=== PATIENT | female | born 1995 | race Caucasian/White ===

== ENCOUNTER 2018-05-28 03:51 | Inpatient (IN) ==
[2018-05-28] MEDS ORDERED: Famotidine 20 MG/2 ML VIAL IVP PRN (03:52)
[2018-05-28] MEDS ORDERED: Lidocaine 1% 20 ML MDV INFILT PRN (03:52)
[2018-05-28] MEDS ORDERED: Naloxone 0.4 MG/ML INJ IVP PRN (03:52)
[2018-05-28] MEDS ORDERED: *HR* Nalbuphine 10 MG/ML AMPUL IVP PRN (03:52)
[2018-05-28] MEDS ORDERED: miSOPROStol 25 MCG TABLET VG PRN (03:52)
[2018-05-28] MEDS ORDERED: Ondansetron 4 MG/2 ML VIAL IVP PRN (03:52)
[2018-05-28] MEDS ORDERED: Metoclopramide 10 MG/2 ML VIAL IVP PRN (03:52)
[2018-05-28] MEDS ORDERED: Ringers Solution, Lactated 1,000 ML IVC SCH (04:00)
[2018-05-28] MEDS ORDERED: Penicillin G Potassium 5,000,000 UNIT in 0.9 % Sodium Chloride Mini Bag 100 ML IVPB ONE (05:00)
[2018-05-28 05:16] LABS: Basophils # 0.1 K/mcL (0.0-0.2); Basophils % 0.8 %; Eosinophils # 0.2 K/mcL (0.0-0.6); Eosinophils % 2.1 %; Hematocrit 37.1 % (35.3-44.9); Hemoglobin 12.9 g/dL (11.5-15.4); Immature Granulocytes % 0.9 % (0-4); Lymphocytes # 2.8 K/mcL (0.6-4.6); Lymphocytes % 24.4 %; Mean Corpuscular HGB Conc 34.8 g/dL (31.6-35.5); Mean Corpuscular Volume 92.1 fL (83.0-100.0); Monocytes # 0.6 K/mcL (0.0-1.3); Monocytes % 5.2 %; Neutrophils # 7.8 K/mcL (1.6-8.9); Platelet Count 264 K/mcL (140-400); Red Blood Count 4.03 M/mcL (3.82-4.97); Red Cell Distribution Width 11.9 % (11.5-14.5); Segmented Neutrophils % 66.6 %
[2018-05-28 05:40] LABS: Amphetamine Screen,Urine Negative ng/mL (Cutoff=1000); Barbiturate Screen,Urine Negative ng/mL (Cutoff=200); Benzodiazepines Screen,Urine Negative ng/mL (Cutoff=200); Cannabinoid Screen,Urine Negative ng/mL (Cutoff = 50); Cocaine Screen,Urine Negative ng/mL (Cutoff= 300); Opiate Screen,Urine Negative ng/mL (Cutoff=300); Phencyclidine Screen,Urine Negative ng/mL (Cutoff=25)
--- NOTE | 2018-05-28 07:31 | OB/GYN History & Physical ---
Date of Encounter: 05/28/18 Time of Encounter: 07:29 Assessment and Plan (1) Elective induction of labor planned Current visit: Yes Status: Acute We will begin with Roca induction and Pitocin versus Cytotec. Currently tracing category 1 with irregular contractions. (2) Postmaturity , 40-42 weeks gestation Current visit: Yes Status: Acute History of Present Illness Chief complaint: induction HPI: Ms. Clemons is a 22 year old female who presents today for induction of labor at 40 weeks and 4 days. Patient is doing well. She is having no complaints of any kind today. On presentation she is oskar irregularly. Cervix is 1 thick and high. Today we discussed reduction. She understands this completely. She does wish to proceed today. We discussed proceeding with a Roca induction. She would like to do this. She has allergies to sulfa causing hives. Current medications include vitamins. She has no chronic medical conditions. Surgical history includes tonsillectomy and adenoidectomy, wisdom teeth extraction. She has no history of abnormal Pap smears, STDs or pelvic infections. Socially she denies tobacco, alcohol, illicit drug use. Family history significant for hypertension. Past Med Surg Social Fam HX - Past Medical History Medical history: no medical history Psychiatric history: no psych history - Past Surgical History Additional surgical history: t&a, wisdom teeth - Social History Smoking Status: Never smoker Smokeless Tobacco Status: No Alcohol use: none Drug use: none - Family History Grandmother Living Status: Still Living Hx Family Cardiac Disorders: Yes (HTN, A Fib) Hx Family Cancer: Yes (breast) Obstetrical History - Pregnancies : 2 Ab's: 1 Livin Medications and Allergies Allergy/AdvReac Type Severity Reaction Status Date / Time Sulfa (Sulfonamide Allergy Hives Verified 05/28/18 04:26 Antibiotics) Review of System OB All systems PM: reviewed and no additional remarkable complaints except as stated Exam - Vital Signs Vital signs: Initial Vital Signs Pulse Resp BP 71 16 133/80 05/28/18 04:29 05/28/18 04:29 05/28/18 04:29 - Constitutional Constitutional: well developed, well nourished, no acute distress, average body habitus - HEENT HEENT: EOMI, PERRL - Neck Neck exam: full ROM - Lungs Respiratory exam: CTAB - Cardiovascular Cardiovascular exam: RRR - Abdomen Abdomen: Present: bowel sounds normal, gravid, non tender - Extremities Extremities exam: full ROM Deep Tendon Reflex Grade: 2+ Normal - Vagina Vagina: Present: normal moisture - Cervix Dilation: 1 Effacement: 0 Station: -2 - Uterus Uterus exam: Present: normal size Results Result Diagrams: 05/28/18 04:10 Abnormal lab results WBC 11.6 K/mcL (4.3-11.1) H 05/28/18 04:10 All other labs normal. - VTE Reasons for not Prescribing Prophylaxis: Treatment not Indicated - Low risk for VTE
[2018-05-28] MEDS: Penicillin G Potassium 2,500,000 UNIT in 0.9 % Sodium Chloride 100 ML IVPB SCH ×3 (09:08→18:03)
--- NOTE | 2018-05-28 09:54 | Anesthesia Evaluation PreOp ---
Date of Encounter: 05/28/18 Time of Encounter: 09:52 - Past History Planned Operation: adolfo Cardiac History: Denies any Significant Hx Pulmonary History: Denies Any Significant HX UNION ORGANIZER History: Denies Any Significant HX Other Medical History: Denies Any Significant HX Anesthesia History: No Prior Anesthetic Complications, Past Anesthesia (tonsils) : Yes (40 plus 4, ) Alcohol Use: none Drug use: none Medications and Allergies Allergy/AdvReac Type Severity Reaction Status Date / Time Sulfa (Sulfonamide Allergy Hives Verified 05/28/18 04:26 Antibiotics) - Meds/Allergy Pre-op Review Medications Reviewed: Yes Allergies Reviewed: Yes Beta Blockers on Current Med List: No Anesthesia Results - Labs 05/28/18 04:10 Anesthesia Exam Height: 68 Weight: 77 - HEENT Pupil (Motor): Pupils equal Mallampati: I Teeth: Normal Oral Opening: Greater than 3 - UNION ORGANIZER LOC: Oriented UNION ORGANIZER Motor: Normal RUE, Normal LUE, Normal RLE, Normal LLE, Normal Face UNION ORGANIZER Sensory: Normal: RUE, LUE, RLE, LLE, Face - Cardiac Rhythm: Regular Murmur: None JVD: No Carotid Bruit: No - Pulmonary Breath Sounds: bilateral Clear Respiratory Effort: Symmetrical Anesthesia Assess/Plan ASA Score: 2 Level of consciousness: Cooperative Anesthetic Plan: Epidural
[2018-05-28] MEDS ORDERED: Oxytocin 20 units/ LR 1000 mL 20 UNIT/1,000 ML BAG IVC SCH (12:15)
[2018-05-28] MEDS ORDERED: Epidural Premix (fent/bupiv) 110 ML EP ONE (16:14)
[2018-05-28] MEDS ORDERED: *HR* Ropivacaine/PF 0.2% 20 ML VIAL ONE ×2 (16:15→21:23)
[2018-05-28] MEDS ORDERED: *HR* FentaNYL (PF) 100 MCG/2 ML VIAL ONE (16:15)
[2018-05-28] MEDS ORDERED: Lidocaine -MPF 1% 5 ML AMPUL ONE (16:15)
[2018-05-28] MEDS ORDERED: Epidural Premix (fent/bupiv) 110 ML EP SCH (16:45)
--- NOTE | 2018-05-28 16:46 | Anesthesia Procedures ---
Date of Encounter: 05/28/18 Time of Encounter: 16:15 ([id number]) Procedures: Anesthesia - Epidural/Spinal Patient ID/Chart reviewed: Yes Patient examined: Yes OB Eval: Contractions: Non-stressed pattern Consent Obtained: Yes Supplemental Oxygen: None/Room Air Site Prep: Aseptic Technique Patient position: upright Local Anesthetic: Lidocaine 1% Amount of Local Anesthetic used: 3 Touhy Needle Gauge: 18 Touhy Needle Depth (cm): 4 Catheter Depth at Skin (cm): 12 Loading Dose: Fentanyl (mcg): 100 Loading Dose: Other: ropivicaine 5cc 0.2%, Loading Dose Administered: Thru Touhy Needle Infusion Rate (mls/hr): [address]: Tegaderm Interspace Used: L3-L4 Loss of Resistance (CHRISTIE): Yes Blood: No CSF: No Paresthesia: No
--- NOTE | 2018-05-28 17:50 | Event Note ---
Date of Encounter: 05/28/18 Time of Encounter: 17:48 Irene is a 22-year-old female 1 who presented today for induction of labor. Patient doing well today. Patient oskar every 2-4 minutes. Pitocin was increased. Sterile vaginal exam she 6 cm, 90% effaced and 0 station. heart rate in the 150s with accelerations, category 1. Clear fluid being noted. We will continue induction of labor.
--- NOTE | 2018-05-28 18:01 | OB Labor Progress Note ---
Date of Encounter: 05/28/18 Time of Encounter: 16:10 Labor Progress Note - Subjective Subjective: Patient working well with contractions. Denies extremely painful contractions at this time but does plan for an epidural. - Vital Signs Vital Signs: WNL - Cervix Cervix: 6/80/-1 - Heart Tones Heart Tones: 145 bpm, moderate variability, +15x15 accels, no decels. - Graham Graham: q 2-4 minutes - Interventions Interventions: SVE after marshall expelled AROM for moderate amount of clear fluid with bloody show. IUPC inserted for accurate contraction monitoring. - Plan Physician notified: Yes Physician notified details: Dr. Herrera at bedside during SVE Plan: Continue Pitocin induction, Epidural when patient desires. Anticipate
--- NOTE | 2018-05-28 21:39 | Anesthesia Progress Note ---
Date of Encounter: 05/28/18 Time of Encounter: 21:37 Anesthesia Note - Note Note: 05/28/18 21:37 Called to bedside for pelvic floor discomfort. 0.2% ropivicaine 10ml given via epidural, gtt rate turned up to 16cc/hr.
--- NOTE | 2018-05-28 22:00 | Event Note ---
Date of Encounter: 05/28/18 Time of Encounter: 21:59 Sterile vaginal exam 9 cm 100% effaced and 0 station. heart rate in the 160s with accelerations. Category 1 tracing. We will continue induction. Contractions every 2 minutes.
[2018-05-29] MEDS: Penicillin G Potassium 2,500,000 UNIT in 0.9 % Sodium Chloride 100 ML IVPB SCH (01:49)
[2018-05-29] MEDS ORDERED: *HR* Phenylephrine 10 MG/ML VIAL ONE (03:56)
[2018-05-29] MEDS ORDERED: Chloroprocaine/PF 20 ML VIAL INFILT ONE (03:56)
[2018-05-29] MEDS ORDERED: *HR* Oxytocin 10 UNIT/ML VIAL IM ONE ×2 (03:56→04:17)
[2018-05-29] MEDS ORDERED: *HR* Morphine Sulfate/PF 10 MG/10 ML AMPUL ONE (04:02)
[2018-05-29] MEDS ORDERED: Ringers Solution, Lactated 1,000 ML ONE (04:17)
--- NOTE | 2018-05-29 04:24 | Event Note ---
Date of Encounter: 05/29/18 Time of Encounter: 03:40 Patient is now been complete and pushing for 4 hours. Patient has rested some periods in between due to tachycardia. Patient able to bring the infant down to a 0/+1 station with no further movement. Multiple techniques used to try help bring baby down. Mother unable to do any further descent of . Infant was again tachycardia in the 170-180 range. Patient exhausted. She does not feel that she can continue this. Patient has given amazing F her. But because I feel no descent we now have tachycardia and we have maternal exhaustion I feel the only option is a section. Patient and agreed and wished to proceed with primary section.
--- NOTE | 2018-05-29 04:27 | OB/GYN Procedure Note ---
Section - Date of procedure: 05/29/18 Preop diagnosis: arrest of descent, category 2 FHT tracing, other (Maternal exhaustion and tachycardia) Post-op diagnosis: other (CPD) Procedure: primary low transverse Surgeon: Adryan Newman Blood Loss: 300 Was there an assistant technician present: Yes Electric Truck Operator: Marie Cantrell Safety Administrator: Gerard Hayes Anesthesia Type: Epidural section complications: none Disposition: PACU Specimens: Placenta - Infant (s) A Presentation: vertex Position: OA Route of delivery: other (primary ) Gender: Female Viability: Viable Pounds: 7 Ounces: 14 Gram Weight: 3.565 kg at 1 minute: 7 at 5 minutes: 9 Shoulder Dystocia: not encountered Specimens collected: cord blood, venous cord gases, arterial cord gases Placenta: partial extraction Cord: 3 umbilical vessels, other (Nuchal cord 2, cord around the arm and cord around leg), nuchal cut - Narrative Narrative: Patient had been pushing approximately 3-4 hours. We now had tachycardia and maternal exhaustion. Infant had had no descent. Because of this would like to proceed with section. At this time we had a flat tracing with tachycardia we were told that we had a repeat section coming in from an outlying hospital who was in labor. We do not expect the patient for 15-20 minutes. Because of this an emergent section was called to have this baby out with a questionable tracing, before the next patient arrived and needed a repeat section. The staff was immediately prepared, and section proceeded within 10 minutes. Patient was taken to the operating room her epidural was bolused. She was prepped and draped in usual sterile fashion. Once adequate analgesia was achieved, a Pfannenstiel incision was made and carried sharply through the subcutaneous taste and fatty tissue until the fascial layers reached. The fascia was then nicked in the midline incised bilaterally with [place] scissors was then dissected vertically for adequate exposure. Rectus abdominis muscle sutures and separate the midline and the peritoneum sharply entered. A bladder blade was placed at the inferior margin incision. The bladder flap was then developed. A bladder blade was placed over the bladder flap. A low transverse incision was then made in the lower uterine segment. At this time a hand from one nursing staff is pushing the infant out from the vagina. 's head was tightly wedged into the pelvis. It did take some time to be able to lift the infant's head out of the pelvis as it was so wedged in. Once 's head was brought up was easily delivered. There was a cord around the neck 2 which was reduced. The rest of the infant was then delivered. There was a cord around the left arm and the leg. was floppy upon delivery. Cord was clamped cut and immediately passed to NICU team in attendance. Cord blood was obtained as well as cord gases. Placenta was delivered via uterine massage and lavage was then performed. The uterus firmed up nicely. The uterine incision was then closed with 0 Vicryl suture in a running locking fashion. 2 [id number]'s were placed for final hemostasis. The uterus was replaced the pelvic cavity. Pelvic cavity was rinsed thoroughly with sterile water 2. There was excellent hemostasis. The fascia was then closed the Vicryl suture running nonlocking fashion. The suprafascial region was rinsed with sterile water 2. All bleeders cauterized. The skin was then closed with danay. Patient tolerated procedure well. Estimated blood loss 300 mL.
[2018-05-29] MEDS ORDERED: Rho Immune Globulin 1,500 UNIT SYRINGE IM ONE ×2 (04:36→08:21)
[2018-05-29] MEDS ORDERED: *HR* OxyCODONE/APAP 5/325 TABLET PO PRN (04:36)
[2018-05-29] MEDS ORDERED: Ibuprofen 600 MG TABLET PO PRN (04:36)
[2018-05-29] MEDS ORDERED: Ondansetron 4 MG/2 ML VIAL IVP PRN ×2 (04:36→08:21)
[2018-05-29] MEDS ORDERED: Simethicone 80 MG TAB.CHEW PO PRN ×2 (04:36→08:21)
[2018-05-29] MEDS ORDERED: Sennosides 8.6 MG TABLET PO PRN ×2 (04:36→08:21)
[2018-05-29] MEDS ORDERED: Metoclopramide 10 MG/2 ML VIAL IVP PRN ×2 (04:36→08:21)
[2018-05-29] MEDS ORDERED: Oxytocin 20 units/ LR 1000 mL 20 UNIT/1,000 ML BAG IVC SCH ×2 (04:45→08:30)
[2018-05-29] MEDS ORDERED: *HR* Promethazine 25 MG/ML VIAL IVP PRN (06:19)
[2018-05-29] MEDS ORDERED: *HR* Meperidine 25 MG/ML SYRINGE IVP PRN (06:19)
[2018-05-29] MEDS ORDERED: Ondansetron 4 MG/2 ML VIAL IVP ONE (06:19)
[2018-05-29] MEDS ORDERED: *HR* HYDROmorphone (PF) 1 MG/ML SYRINGE IVP PRN ×2 (06:19)
[2018-05-29] MEDS ORDERED: *HR* OxyCODONE Immed Rel 5 MG TABLET PO PRN (06:19)
[2018-05-29] MEDS ORDERED: Ringers Solution, Lactated 1,000 ML IVC SCH ×2 (06:30→08:30)
[2018-05-29] MEDS ORDERED: ceFAZolin 2,000 MG in Water for inj. (sterile) 20 ML 10 ML IVP SCH (08:00)
[2018-05-29] MEDS ORDERED: Naloxone 0.4 MG/ML INJ IVP PRN (08:21)
[2018-05-29] MEDS ORDERED: Prenatal Vit/FA 1 EACH TABLET PO SCH (09:00)
--- NOTE | 2018-05-29 10:32 | Anesthesia Evaluation Post Op ---
Date of Encounter: 05/29/18 Time of Encounter: 10:31 - Vital Signs Vital Signs: Vital Signs/O2 Sat, Most Current Temp Pulse Resp BP Pulse Ox 98.8 F 72 14 118/64 98 05/29/18 09:43 05/29/18 09:43 05/29/18 09:43 05/29/18 09:43 05/29/18 09:43 - Lungs Lungs: Clear Ascult./Percussion - Airway Airway: Non-obstructed - Cardiovascular Regular Rate - Mental Status Mental Status: Alert & Oriented, Answers Appropriately - Pain Pain Scale: 1 Pain Scale used: Numeric (1 - 10) - Nausea Vomiting Nausea Vomiting: Not Present - Hydration Hydration: Tolerates oral liquids, Roca catheter - Discharge PostOp Status: Transfer Patient to floor
[2018-05-29] MEDS: Prenatal Vit/FA 1 EACH TABLET PO SCH (11:41)
[2018-05-29] MEDS: Ibuprofen 600 MG TABLET PO PRN (19:45)
[2018-05-29] MEDS: *HR* OxyCODONE/APAP 5/325 TABLET PO PRN ×2 (19:45→23:50)
[2018-05-30] MEDS: *HR* OxyCODONE/APAP 5/325 TABLET PO PRN ×3 (04:22→20:54)
[2018-05-30 05:19] LABS: Basophils # 0.1 K/mcL (0.0-0.2); Basophils % 0.4 %; Eosinophils # 0.2 K/mcL (0.0-0.6); Eosinophils % 1.6 %; Hematocrit 31.4 % (35.3-44.9); Immature Granulocytes % 0.6 % (0-4); Lymphocytes # 2.3 K/mcL (0.6-4.6); Lymphocytes % 16.6 %; Mean Corpuscular HGB Conc 33.4 g/dL (31.6-35.5); Mean Corpuscular Hemoglobin 31.3 pg (28.0-33.3); Mean Corpuscular Volume 93.7 fL (83.0-100.0); Mean Platelet Volume 9.9 fL (9.4-12.4); Monocytes # 0.8 K/mcL (0.0-1.3); Monocytes % 5.5 %; Neutrophils # 10.6 K/mcL (1.6-8.9); Platelet Count 193 K/mcL (140-400); Red Blood Count 3.35 M/mcL (3.82-4.97); Red Cell Distribution Width 12.2 % (11.5-14.5); Segmented Neutrophils % 75.3 %
[2018-05-30 05:20] LABS: Hemoglobin 10.5 g/dL (11.5-15.4)
[2018-05-30] MEDS: Ibuprofen 600 MG TABLET PO PRN ×2 (08:05→17:45)
[2018-05-30] MEDS: Prenatal Vit/FA 1 EACH TABLET PO SCH (08:05)
--- NOTE | 2018-05-30 08:22 | OB/GYN Progress Note ---
Date of Encounter: 05/30/18 Time of Encounter: 08:20 - Assessment and Plan (1) Status post primary low transverse section Current Visit: Yes Status: Acute Meeting all day 1 milestones Continue routine care Anticipate discharge home tomorrow (2) Breast feeding status of mother Current Visit: Yes Status: Acute consult when necessary Subjective - Subjective Principal diagnosis: s/p PLTCS Interval history: Feeling well. Out of bed without dizziness. Some abdominal discomfort-using binder. Cramping minimal, using ibuprofen and Percocet. every 2- 3 hours. Some nipple soreness. Voiding without difficulty. Passing flatus, no BM yet. Tolerating clear liquid diet. Patient reports: appetite normal, voiding normally, pain well controlled, ambulating normally [place]: doing well, nursing well Objective - Vital Signs Latest vital signs: Vital Signs Temp Pulse Resp BP Pulse Ox 05/30/18 07:53 97.5 F L 69 16 118/75 98 05/30/18 04:15 97.8 F 64 16 121/74 97 05/29/18 23:52 97.5 F L 70 18 109/66 96 05/29/18 20:48 98.3 F 82 18 122/76 96 05/29/18 16:45 98.1 F 100 16 123/82 98 05/29/18 11:33 14 05/29/18 09:43 98.8 F 72 14 118/64 98 05/29/18 09:30 98.8 F 72 14 118/64 98 05/29/18 08:30 98.8 F 77 14 123/65 98 Intake and Output 05/29/18 05/30/18 05/30/18 23:59 07:59 15:59 Intake Total 800 / 800 Output Total 3300 / 3300 700 / 700 Balance -3300 / -3300 100 / 100 Intake: Oral 800 / 800 Output: Urine 1400 / 1400 700 / 700 Catheter 1900 / 1900 Other: Weight 70.216 kg Patient Weight 05/30/18 23:59 Weight 70.216 kg - Exam Lungs: bilateral: normal Chest: Normal S1, Normal S2 Extremities: Present: normal Abdomen: Present: normal appearance, soft Incision: Present: normal, dry, dressed Uterus: Present: firm Fundal Height: 2 (below and midline) - Labs Labs: Laboratory Results - last 24 hr 05/30/18 05:06 WBC 14.1 H RBC 3.35 L Hgb 10.5 L D Hct 31.4 L MCV 93.7 MCH 31.3 MCHC 33.4 RDW 12.2 Plt Count 193 MPV 9.9 Immature Gran % 0.6 Seg Neutrophils % 75.3 Lymphocytes % 16.6 Monocytes % 5.5 Eosinophils % 1.6 Basophils % 0.4 Neutrophils # 10.6 H Lymphocytes # 2.3 Monocytes # 0.8 Eosinophils # 0.2 Basophils # 0.1
[2018-05-30] MEDS ORDERED: Measles/Mumps/Rubella Vacc 0.5 ML VIAL SQ ONE (17:27)
[2018-05-30] MEDS ORDERED: Lanolin 7 G OINT...G. TP PRN (17:32)
[2018-05-31] MEDS: *HR* OxyCODONE/APAP 5/325 TABLET PO PRN ×3 (04:09→14:31)
[2018-05-31] MEDS: Prenatal Vit/FA 1 EACH TABLET PO SCH (08:51)
[2018-05-31] MEDS: Ibuprofen 600 MG TABLET PO PRN ×2 (14:31→21:37)
--- NOTE | 2018-05-31 17:55 | OB/GYN Progress Note ---
Date of Encounter: 05/31/18 Time of Encounter: 17:53 - Assessment and Plan (1) Status post primary low transverse section Current Visit: Yes Status: Acute Stable postop day #2 Continue current management Anticipate discharge tomorrow Subjective - Subjective Interval history: Patient states pain will managed, tolerating by mouth, passing flatus. patient is having tearfulness and concern with condition after spitting up old blood, but appropriate for situation Patient reports: appetite normal, voiding normally, pain well controlled, ambulating normally : doing well Objective - Vital Signs Latest vital signs: Vital Signs Temp Pulse Resp BP Pulse Ox 05/31/18 08:50 16 05/31/18 08:25 98.0 F 78 16 123/78 97 05/30/18 20:49 98.3 F 76 14 119/76 97 Intake and Output 05/31/18 05/31/18 05/31/18 07:59 15:59 23:59 Intake Total 600 / 600 700 / 700 Output Total 845 / 845 650 / 650 Balance 600 / 600 -145 / -145 -650 / -650 Intake: Oral 600 / 600 700 / 700 Output: Urine 845 / 845 650 / 650 Other: Weight 72.03 kg Patient Weight 05/31/18 23:59 Weight 72.03 kg - Exam Lungs: left: normal Extremities: Present: normal Abdomen: Present: soft Uterus: Present: firm (U)
[2018-05-31 22:03] VITALS: BP 126/78
[2018-06-01] MEDS: *HR* OxyCODONE/APAP 5/325 TABLET PO PRN (00:03)
[2018-06-01] MEDS: Prenatal Vit/FA 1 EACH TABLET PO SCH (09:53)
[2018-06-01] MEDS: Ibuprofen 600 MG TABLET PO PRN (09:53)
--- NOTE | 2018-06-01 10:42 | Discharge Summary ---
Date of Encounter: 06/01/18 Time of Encounter: 10:35 - Discharge Diagnosis (1) Breast feeding status of mother Priority: Secondary Status: Acute Comments: well established. Pt has pump at home. (2) Status post primary low transverse section Priority: Primary Status: Acute Comments: Pt meeting all post-op milestones and desires discharge home today. - Discharge Medications Prescriptions: Ibuprofen [Motrin] 600 mg PO Q6HR PRN #60 tablet PRN Reason: Cramping OxyCODONE/APAP 5/325 [Percocet 5/325 MG] 1 each PO Q6HR PRN 7 Days #28 tablet PRN Reason: Moderate pain 4-6 Azithromycin [Zithromax] 500 mg PO DAILY #5 tablet Cephalexin [Keflex] 500 mg PO BID #10 capsule Docusate [Colace] 100 mg PO BID #60 capsule Home Medications: Azithromycin [Zithromax] 500 mg PO DAILY #5 tablet 06/01/18 [Rx] Cephalexin [Keflex] 500 mg PO BID #10 capsule 06/01/18 [Rx] Docusate [Colace] 100 mg PO BID #60 capsule 06/01/18 [Rx] Ibuprofen [Motrin] 600 mg PO Q6HR PRN #60 tablet 06/01/18 [Rx] Lanolin [Lansinoh] 1 appl TP QID PRN oint...g. 06/01/18 [Rx] Mupirocin [Bactroban Oint] 1 appl TP BID tube 06/01/18 [Rx] OxyCODONE/APAP 5/325 [Percocet 5/325 MG] 1 each PO Q6HR PRN 7 Days #28 tablet 06/01/18 [Rx] Simethicone [Gas-X] 80 mg PO TID PRN tab.chew 06/01/18 [Rx] Allergies/Adverse Reactions: Allergy/AdvReac Type Severity Reaction Status Date / Time Sulfa (Sulfonamide Allergy Hives Verified 05/28/18 04:26 Antibiotics) Data Procedures and tests throughout hospitalization: Laboratory Tests 05/28/18 05/28/18 05/29/18 04:10 05:00 05:30 WBC 11.6 H RBC 4.03 Hgb 12.9 Hct 37.1 MCV 92.1 MCH 32.0 MCHC 34.8 RDW 11.9 Plt Count 264 MPV 11.0 Immature Gran % 0.9 Seg Neutrophils % 66.6 Lymphocytes % 24.4 Monocytes % 5.2 Eosinophils % 2.1 Basophils % 0.8 Neutrophils # 7.8 Lymphocytes # 2.8 Monocytes # 0.6 Eosinophils # 0.2 Basophils # 0.1 Urine Opiates Screen Negative Ur Barbiturates Screen Negative Ur Phencyclidine Scrn Negative Ur Amphetamines Screen Negative U Benzodiazepines Scrn Negative Urine Cocaine Screen Negative U Marijuana (THC) Screen Negative Ur Drug Screen Interp See Below Screen NEGATIVE Baby's Blood Type A RH POSITIVE Mother's Blood Type A RH NEGATIVE Rhogam Indicated YES Rhogam Req for Mother 1 05/30/18 05:06 WBC 14.1 H RBC 3.35 L Hgb 10.5 L D Hct 31.4 L MCV 93.7 MCH 31.3 MCHC 33.4 RDW 12.2 Plt Count 193 MPV 9.9 Immature Gran % 0.6 Seg Neutrophils % 75.3 Lymphocytes % 16.6 Monocytes % 5.5 Eosinophils % 1.6 Basophils % 0.4 Neutrophils # 10.6 H Lymphocytes # 2.3 Monocytes # 0.8 Eosinophils # 0.2 Basophils # 0.1 Urine Opiates Screen Ur Barbiturates Screen Ur Phencyclidine Scrn Ur Amphetamines Screen U Benzodiazepines Scrn Urine Cocaine Screen U Marijuana (THC) Screen Ur Drug Screen Interp Screen Baby's Blood Type Mother's Blood Type Rhogam Indicated Rhogam Req for Mother Date of admission: 05/28/18 03:51 Primary care physician: Sabrina Beck Discharging clinician: Rosa Tiwari Anticipated date of discharge: 06/01/18 - Patient Status Disposition: Home, Self-Care Condition: Good Functional capacity at discharge: independent ambulation Overall status at discharge: patient is progressing back to baseline - Discharge Instructions Follow Up With: Petra Sorto DO [Primary Care Provider] - Adryan Herrera MD [Partnered Physician] - - Diet and Activity Activity: increase activity as tolerated Diet: regular diet Hospital Course Reason for admission: induction of labor Delivery: section Episiotomy: none Laceration: none Other procedures: none complications: none Discharge diagnosis: IUP at term delivered [place] baby: female Hospital course: - Date of procedure: 05/29/18 Preop diagnosis: arrest of descent, category 2 FHT tracing, other (Maternal exhaustion and tachycardia) Post-op diagnosis: other (CPD) Procedure: primary low transverse Surgeon: Adryan Herrera Quantitated Blood Loss: 300 Was there an assistant operator present: Yes Skip Locator: Marie Cantrell Round Up Ring Hand: Gerard Hayes Anesthesia Type: Epidural section complications: none Disposition: PACU Specimens: Placenta - Infant (s) Infant A Presentation: vertex Position: OA Route of delivery: other (primary ) Gender: Female Viability: Viable Pounds: 7 Ounces: 14 Gram Weight: 3.565 kg at 1 minute: 7 at 5 minutes: 9 Shoulder Dystocia: not encountered Specimens collected: cord blood, venous cord gases, arterial cord gases Placenta: partial extraction Cord: 3 umbilical vessels, other (Nuchal cord 2, cord around the arm and cord around leg), nuchal cut Time Attestation: Total time spent providing and/or coordinating discharge services: - VTE Reasons for not Prescribing Prophylaxis: Treatment not Indicated - Low risk for VTE Documentation of Mechanical Device: Intermittent pneumatic compression device Exam - Constitutional Vitals: Temp Pulse Resp BP Pulse Ox 98.0 F 70 18 126/78 98 05/31/18 21:15 05/31/18 21:15 05/31/18 21:30 05/31/18 21:15 05/31/18 21:15 General appearance IM: A&O X 3 - Respiratory Respiratory exam: Present: CTAB - Cardiovascular Cardiovascular exam IM: Present: RRR - GI/Abdominal GI/Abdominal exam IM: soft Incision: normal, dry, intact Additional comments: intact with danay, no s/sx infection - Uterine Tone: Firm Uterus Position: 1 Finger Below Umbilicus - Extremities Exam Extremities exam IM: Present: normal inspection - Neurological Exam Neurological exam: normal gait, oriented X3 - Psychiatric Additional comments: reports good mood, pt to discuss contraception with Dr. Herrera at visit
== END 2018-06-01 11:33 | disposition home or self-care (01) | DRG 788 ==
LOC: 1NENULAB 03:51 → 1NENUOBS 05-29 06:39
PROVIDERS: ADMIT Obstetrics & Gynecology; ATTEND Obstetrics & Gynecology

== ENCOUNTER 2021-02-13 04:59 | Inpatient (IN) ==
[2021-02-13] MEDS ORDERED: Azithromycin 500 MG in 0.9 % Sodium Chloride 250 ML IVPB PRN (05:09)
[2021-02-13] MEDS ORDERED: Ringers Solution, Lactated 1,000 ML IVC ONE (05:09)
[2021-02-13] MEDS ORDERED: Naloxone 0.4 MG/ML INJ IVP PRN (05:09)
[2021-02-13] MEDS ORDERED: Metoclopramide 10 MG/2 ML VIAL IVP PRN (05:09)
[2021-02-13] MEDS ORDERED: Famotidine 20 MG/2 ML VIAL IVP PRN (05:09)
[2021-02-13] MEDS ORDERED: Ringers Solution, Lactated 1,000 ML IVC SCH (05:15)
[2021-02-13 05:58] LABS: Basophils # 0.1 K/mcL (0.0-0.2); Basophils % 0.9 %; Eosinophils # 0.2 K/mcL (0.0-0.6); Eosinophils % 1.8 %; Hematocrit 35.8 % (35.3-44.9); Hemoglobin 11.5 g/dL (11.5-15.4); Immature Granulocytes % 1.3 % (0-4); Lymphocytes # 3.1 K/mcL (0.6-4.6); Lymphocytes % 27.2 %; Mean Corpuscular HGB Conc 32.1 g/dL (31.6-35.5); Mean Corpuscular Hemoglobin 29.1 pg (28.0-33.3); Mean Corpuscular Volume 90.6 fL (83.0-100.0); Mean Platelet Volume 10.5 fL (9.4-12.4); Monocytes % 8.5 %; Platelet Count 428 K/mcL (140-400); Red Blood Count 3.95 M/mcL (3.82-4.97); Red Cell Distribution Width 12.7 % (11.5-14.5); Segmented Neutrophils % 60.3 %; White Blood Count 11.5 K/mcL (4.3-11.1)
[2021-02-13 06:29] LABS: Influenza A PCR Negative (Negative); Influenza B PCR Negative (Negative); Resp. Syncytial Virus PCR Negative (Negative)
[2021-02-13 06:30] LABS: SARS-CoV-2 by PCR (In House) Negative (Negative)
[2021-02-13] MEDS ORDERED: EPHEDrine 50 MG/ML VIAL ONE (07:12)
[2021-02-13] MEDS ORDERED: *HR* Morphine Sulfate/PF 10 MG/10 ML AMPUL ONE (07:12)
[2021-02-13] MEDS ORDERED: *HR* FentaNYL (PF) 100 MCG/2 ML VIAL ONE (07:13)
[2021-02-13] MEDS ORDERED: *HR* Oxytocin 10 UNIT/ML VIAL IM ONE (07:13)
[2021-02-13] MEDS ORDERED: Ondansetron 4 MG/2 ML VIAL ONE (07:13)
[2021-02-13] MEDS ORDERED: Ketorolac 30 MG/ML VIAL ONE (07:13)
[2021-02-13] MEDS ORDERED: *HR* Phenylephrine 10 MG/ML VIAL ONE (07:13)
[2021-02-13] MEDS ORDERED: Ringers Solution, Lactated 1,000 ML ONE (07:22)
[2021-02-13] MEDS ORDERED: Oxytocin 20 units/ LR 1000 mL 20 UNIT/1,000 ML BAG IVC ONE (08:12)
[2021-02-13 10:05] LABS: Amphetamine Screen,Urine Negative ng/mL (Cutoff=1000); Barbiturate Screen,Urine Negative ng/mL (Cutoff=200); Benzodiazepines Screen,Urine Negative ng/mL (Cutoff=200); Cannabinoid Screen,Urine Negative ng/mL (Cutoff = 50); Cocaine Screen,Urine Negative ng/mL (Cutoff= 300); Opiate Screen,Urine Negative ng/mL (Cutoff=300); Phencyclidine Screen,Urine Negative ng/mL (Cutoff=25)
[2021-02-13] MEDS ORDERED: Lanolin 7 G OINT...G. TP PRN (12:04)
[2021-02-13] MEDS ORDERED: Ondansetron ODT 4 MG TAB.RAPDIS SL PRN (12:04)
[2021-02-13] MEDS ORDERED: Oxytocin 20 units/ LR 1000 mL 20 UNIT/1,000 ML BAG IVC SCH (12:04)
[2021-02-13] MEDS ORDERED: Benzocaine/Menthol 56 GM AEROSOL SPRAY TP PRN (12:04)
[2021-02-13] MEDS ORDERED: Rho Immune Globulin 1,500 UNIT SYRINGE IM PRN (12:04)
[2021-02-13] MEDS ORDERED: Measles/Mumps/Rubella Vacc 0.5 ML VIAL SQ PRN (12:04)
[2021-02-13] MEDS ORDERED: *HR* OxyCODONE Immed Rel 5 MG TABLET PO PRN (12:04)
[2021-02-13] MEDS ORDERED: *HR* Nalbuphine 10 MG/ML AMPUL IV PRN (14:29)
[2021-02-13] MEDS: Ibuprofen 600 MG TABLET PO SCH ×2 (16:45→23:03)
[2021-02-13] MEDS: CeFAZolin 2,000 MG/120 ML BAG IVPB SCH (16:46)
[2021-02-13] MEDS: Acetaminophen 325 MG TABLET PO SCH ×2 (17:43→18:34)
[2021-02-14] MEDS: Acetaminophen 325 MG TABLET PO SCH ×4 (00:50→21:08)
[2021-02-14] MEDS: CeFAZolin 2,000 MG/120 ML BAG IVPB SCH ×2 (00:53→08:07)
[2021-02-14 05:10] LABS: Basophils # 0.1 K/mcL (0.0-0.2); Basophils % 0.5 %; Eosinophils # 0.2 K/mcL (0.0-0.6); Eosinophils % 1.1 %; Hematocrit 32.4 % (35.3-44.9); Hemoglobin 10.8 g/dL (11.5-15.4); Immature Granulocytes % 0.7 % (0-4); Lymphocytes # 3.8 K/mcL (0.6-4.6); Lymphocytes % 20.9 %; Mean Corpuscular HGB Conc 33.3 g/dL (31.6-35.5); Mean Corpuscular Hemoglobin 30.1 pg (28.0-33.3); Mean Corpuscular Volume 90.3 fL (83.0-100.0); Mean Platelet Volume 10.7 fL (9.4-12.4); Monocytes # 1.3 K/mcL (0.0-1.3); Monocytes % 7.4 %; Neutrophils # 12.5 K/mcL (1.6-8.9); Platelet Count 397 K/mcL (140-400); Red Blood Count 3.59 M/mcL (3.82-4.97); Red Cell Distribution Width 12.6 % (11.5-14.5); Segmented Neutrophils % 69.4 %
[2021-02-14] MEDS: Ibuprofen 600 MG TABLET PO SCH ×3 (06:38→19:02)
[2021-02-14] MEDS: Prenatal Vit/FA 1 EACH TABLET PO SCH (08:06)
[2021-02-14 20:28] VITALS: O2SAT 97
[2021-02-15] MEDS: Ibuprofen 600 MG TABLET PO SCH (04:12)
[2021-02-15] MEDS: Acetaminophen 325 MG TABLET PO SCH (04:12)
[2021-02-15] MEDS: Prenatal Vit/FA 1 EACH TABLET PO SCH (07:32)
[2021-02-15 07:45] VITALS: BP 112/68; PULSE 66; TEMP 98.5
== END 2021-02-15 10:04 | disposition home or self-care (01) | DRG 788 ==
LOC: 1NENULAB 04:59 → 1NENUOBS 11:28
PROVIDERS: ADMIT Obstetrics & Gynecology; ATTEND Obstetrics & Gynecology